=== PATIENT | female | born 1945 | race Caucasian/White ===

== ENCOUNTER 2017-01-30 00:19 | Emergency (ER) | payer OTHER, BC ==
[~2017-01-30] VITALS: Ht 154.9 cm; Wt 82.3 kg
[~2017-01-30 00:19] MED LIST: METF500T5 PO; PRVC/20 PO; VST10 PO
[2017-01-30 00:21] VITALS: TEMP 37; Ht 154.9 cm; Wt 82.3 kg
[2017-01-30] MEDS ORDERED: PRVC/40 PO (01:04)
[2017-01-30] MEDS ORDERED: HYDR25TA4 PO (01:05)
--- NOTE | 2017-01-30 01:05 | EMERGENCY ROOM VISIT NOTE ---
History Report prepared by Samiraibmarlon: Jackson Schmitt Under the Supervision of: Dr. Duy Go D.O. First contact with patient: 00:36 Chief Complaint: GI ASSESSMENT Stated Complaint: BURNING PAIN IN COLON AREA Nursing Triage Summary: Patient ambulatory to triage, states "I have a really bad burning in my gut area, especially in my right side. I had the same pain last week after taking metamucil. The burning lasted for three days. I took metamucil again tonight and got the same burning pain." Patient denies nausea, vomiting. Patient reports having her gallbladder removed about 8 years ago; tubal ligation. History of Present Illness The patient is a 71 year old female who presents to the Emergency Room with complaints of constant right-sided abdominal pain all day. The patient had similar pain last week, which resolved and returned today. The pain is worse when she takes a deep breath. The pain is currently rated 6/10 in severity and is described as a burning sensation internally. She has been eating okay and her bowel movements have been normal. She denies fevers or urinary symptoms. She is s/p cholecystectomy and tubal ligation. She still has an appendix. The patient denies history of colon cancer. Source of History: patient Onset: all day Position: abdomen (right) Symptom Intensity: 6/10 Quality: burning Timing: constant Modifying Factors (Worsening): breathing Associated Symptoms: No fevers, No urinary symptoms Review of Systems See HPI for pertinent positives and negatives. A total of ten systems were reviewed and were otherwise negative. Past Medical & Surgical Medical Problems: (1) HTN (hypertension) Family History No pertinent family history Social History Smoking Status: Never Smoker Marital Status: Housing Status: lives with family Current/Historical Medications Scheduled Enalapril Maleate (Enalapril Maleate), 10 MG PO DAILY Gemfibrozil (Lopid), 600 MG PO BID Hydrochlorothiazide (Hctz), 25 MG PO DAILY Levothyroxine Sodium (Levothyroxine Sodium), 50 MCG PO DAILY Metformin Hcl Er (Glucophage Er), 500 MG PO DAILY Pravastatin Sod (Pravastatin Sodium), 40 MG PO DAILY Allergies Coded Allergies: No Known Allergies (Unverified , 01/30/17) Physical Exam Vital Signs Date Time Temp Pulse Resp B/P Pulse Ox O2 Delivery O2 Flow Rate FiO2 01/30/17 02:50 63 01/30/17 01:54 62 20 156/59 95 Room Air 01/30/17 00:21 37.0 75 18 182/91 95 Room Air Physical Exam GENERAL: Awake, alert, well-appearing, in no distress HENT: Normocephalic, atraumatic. Oropharynx unremarkable. EYES: Normal conjunctiva. Sclera non-icteric. NECK: Supple. No nuchal rigidity. FROM. No JVD. RESPIRATORY: Clear to auscultation. CARDIAC: Regular rate, normal rhythm. Extremities warm and well perfused. Pulses equal. ABDOMEN: Soft, non-distended. Mild tenderness right flank. No rebound or guarding. No masses. RECTAL: Deferred. MUSCULOSKELETAL: Chest examination reveals no tenderness. The back is symmetrical on inspection without obvious abnormality. No joint edema. LOWER EXTREMITIES: Calves are equal size bilaterally and non-tender. No edema. No discoloration. NEURO: Normal sensorium. No sensory or motor deficits noted. SKIN: No rash or jaundice noted. Medical Decision & Procedures ER Provider Diagnostic Interpretation: CT results as stated below per my review and radiologist interpretation CT ABDOMEN & PELVIS: Cholecystectomy clips. No pancreatis or pyelonephritis. No hydronephrosis. Indeterminate subcentimeter hypodense lesion int he right liver lobe on image 35 series 2. Normal caliber abdominal aorta with atherosclerotic disease. Diverticulosis without evidence of diverticulitis. Normal appendix. No free air or free fluid or fluid collection. No bowel obstruction. Small hiatal hernia. Radiologist: Wilbur Cr MD. Laboratory Results 01/30/17 01:25 Red Blood Count 3.94, Mean Corpuscular Volume 92.4, Mean Corpuscular Hemoglobin 30.7, Mean Corpuscular Hemoglobin Concent 33.2, Mean Platelet Volume 8.8, Neutrophils (%) (Auto) 56.7, Lymphocytes (%) (Auto) 27.0, Monocytes (%) (Auto) 10.4, Eosinophils (%) (Auto) 5.1, Basophils (%) (Auto) 0.5, Neutrophils # (Auto ) 6.19, Lymphocytes # (Auto) 2.94, Monocytes # (Auto) 1.13, Eosinophils # (Auto ) 0.55, Basophils # (Auto) 0.05 01/30/17 01:25 Test 4/30/17 01:25 White Blood Count 10.89 K/uL (4.8-10.8) Red Blood Count 3.94 M/uL (4.2-5.4) Hemoglobin 12.1 g/dL (12.0-16.0) Hematocrit 36.4 % (37-47) Mean Corpuscular Volume 92.4 fL (80-100) Mean Corpuscular Hemoglobin 30.7 pg (25-34) Mean Corpuscular Hemoglobin Concent 33.2 g/dl (32-36) Platelet Count 354 K/uL (130-400) Mean Platelet Volume 8.8 fL (7.4-10.4) Neutrophils (%) (Auto) 56.7 % Lymphocytes (%) (Auto) 27.0 % Monocytes (%) (Auto) 10.4 % Eosinophils (%) (Auto) 5.1 % Basophils (%) (Auto) 0.5 % Neutrophils # (Auto) 6.19 K/uL (1.4-6.5) Lymphocytes # (Auto) 2.94 K/uL (1.2-3.4) Monocytes # (Auto) 1.13 K/uL (0.11-0.59) Eosinophils # (Auto) 0.55 K/uL (0-0.5) Basophils # (Auto) 0.05 K/uL (0-0.2) RDW Standard Deviation 45.2 fL (36.4-46.3) RDW Coefficient of Variation 13.3 % (11.5-14.5) Immature Granulocyte % (Auto) 0.3 % Immature Granulocyte # (Auto) 0.03 K/uL (0.00-0.02) Urine Color YELLOW Urine Appearance CLEAR (CLEAR) Urine pH 6.0 (4.5-7.5) Urine Specific [place] 1.015 (1.000-1.030) Urine Protein NEG (NEG) Urine Glucose (UA) NEG (NEG) Urine Ketones NEG (NEG) Urine Occult Blood NEG (NEG) Urine Nitrite NEG (NEG) Urine Bilirubin NEG (NEG) Urine Urobilinogen NEG (NEG) Urine Leukocyte Esterase LARGE (NEG) Urine WBC (Auto) >30 /hpf (0-5) Urine RBC (Auto) 0-4 /hpf (0-4) Urine Hyaline Casts (Auto) 0 /lpf (0-5) Urine Epithelial Cells (Auto) >30 /lpf (0-5) Urine Bacteria (Auto) NEG (NEG) Anion Gap 9.0 mmol/L (3-11) Est Creatinine Clear Calc Drug Dose 44.3 ml/min Estimated GFR () 57.7 Estimated GFR (Non- 49.8 BUN/Creatinine Ratio 26.4 (10-20) Calcium Level 9.5 mg/dl (8.5-10.1) Total Bilirubin 0.2 mg/dl (0.2-1) Direct Bilirubin < 0.1 mg/dl (0-0.2) Aspartate Amino Transf (AST/SGOT) 20 U/L (15-37) Alanine Aminotransferase (ALT/SGPT) 30 U/L (12-78) Alkaline Phosphatase 80 U/L (45-117) Total Protein 7.4 gm/dl (6.4-8.2) Albumin 3.8 gm/dl (3.4-5.0) Lipase 245 U/L (73-393) Laboratory results reviewed by me Medications Administered Medications (Trade) Dose Ordered Sig/[place] Route Start Time Stop Time Status Last Admin Dose Admin Morphine Sulfate (MoRPHine SULFATE INJ) 4 mg NOW STAT IV 01/30/17 01:06 01/30/17 01:07 DC 01/30/17 01:52 4 MG Ondansetron HCl 4 mg 4 mg NOW STAT IV 01/30/17 01:06 01/30/17 01:08 DC 01/30/17 01:52 4 MG Sodium Chloride (Nss 1000ml) 1,000 ml @ 999 mls/hr Q1H1M IV 01/30/17 01:30 03/01/17 01:29 01/30/17 01:51 999 MLS/HR ED Course 0057: The patient was evaluated in room B9. A complete history and physical exam was performed. 0106: Zofran 4 mg IV, Morphine Sulfate 4 mg IV. 0130: NSS 1000 ml @ 999 mls/hr. 0330: Septra Ds 800 / 160 mg PO. 0330: Reevaluated the patient. She is feeling much better. Discussed the treatment plan with her. She verbalized understanding. Medical Decision Differential diagnosis: Etiologies such as appendicitis, diverticulitis, PUD, biliary pathology, UTI, pancreatitis, obstruction, mesenteric ischemia, aortic pathology, infections, inflammatory bowel disease, renal colic, as well as others were entertained. Patient on reexamination resting in no distress I discussed the workup the patient patient's at bedside. Patient will be treated with antibiotics. Patient's CAT scan was appreciated. Impression Primary Impression: Abdominal pain Additional Impression: UTI (urinary tract infection) Scribe Attestation The scribe's documentation has been prepared under my direction and personally reviewed by me in its entirety. I confirm that the note above accurately reflects all work, treatment, procedures, and medical decision making performed by me. Departure Information Dispostion Home / Self-Care Prescriptions Sulfa/Trimethoprim (Bactrim Ds 800MG/160MG) Tab 1 TAB PO BID, #14 TAB Prov: Duy Go, DO 01/30/17 Referrals RV. Linton MD (PCP) Forms HOME CARE DOCUMENTATION FORM, IMPORTANT VISIT INFORMATION Patient Instructions Abdominal Pain, ED UTI Cystitis Female, My [facility] Health Problem Qualifiers Primary Impression: Abdominal pain Abdominal location: unspecified location Qualified Codes: R10.9 - Unspecified abdominal pain
[2017-01-30] MEDS ORDERED: MoRPHine SULFATE 4 MG/ML 1 ML CARP\\VIAL IV STA (01:06)
[2017-01-30] MEDS ORDERED: ONDANSETRON INJ 2 MG/ML 2 ML VIAL IV STA (01:06)
[2017-01-30] MEDS ORDERED: LEVO50TA6 PO (01:07)
[2017-01-30] MEDS ORDERED: GEMF600T3 PO (01:08)
[2017-01-30] MEDS ORDERED: OPTIRAY 320 IV PRN (01:15)
[2017-01-30] MEDS ORDERED: SODIUM CHLORIDE 0.9% 1000ML 1,000 ML IV SCH (01:30)
[2017-01-30 01:41] LABS: BASO % 0.5 %; BASO ABS # 0.05 K/uL (0-0.2); COMPLETE YES; EOS % 5.1 %; HEMATOCRIT 36.4 % (37-47); IG% 0.3 %; LYMPH ABS # 2.94 K/uL (1.2-3.4); MEAN CELL VOLUME 92.4 fL (80-100); MEAN CORPUSCULAR HEMOGLOBIN 30.7 pg (25-34); MEAN CORPUSCULAR HGB CONC 33.2 g/dl (32-36); MEAN PLATELET VOLUME 8.8 fL (7.4-10.4); MONO % 10.4 %; NEUT % 56.7 %; PLATELET COUNT 354 K/uL (130-400); RED BLOOD COUNT 3.94 M/uL (4.2-5.4); WHITE BLOOD COUNT 10.89 K/uL (4.8-10.8)
[2017-01-30 01:43] LABS: MANUAL MICROSCOPIC REQUIRED? NO; REVIEW REQ? NO; URINE APPEARANCE CLEAR (CLEAR); URINE BILIRUBIN NEG (NEG); URINE COLOR YELLOW; URINE EPITHELIAL CELL AUTO >30 /lpf (0-5); URINE NITRITE NEG (NEG); URINE SPECIFIC GRAVITY 1.015 (1.000-1.030); UROBILINOGEN NEG (NEG); ZZUR CULT IF INDIC CLEAN CATCH YES
[2017-01-30 02:02] LABS: ALT/SGPT 30 U/L (12-78); AST/SGOT 20 U/L (15-37); BLOOD UREA NITROGEN 29 mg/dl (7-18); BUN/CREATININE RATIO 26.4 (10-20); CALCIUM 9.5 mg/dl (8.5-10.1); CARBON DIOXIDE 28 mmol/L (21-32); CHLORIDE 105 mmol/L (98-107); GLUCOSE 130 mg/dl (70-99); POTASSIUM 3.6 mmol/L (3.5-5.1); SODIUM 142 mmol/L (136-145)
[2017-01-30 02:04] LABS: ALKALINE PHOSPHATASE 80 U/L (45-117)
[2017-01-30] MEDS ORDERED: SULFAMETHOXAZOLE/TRIMETHOPRIM DS 800/160MG TAB PO ONE (03:30)
[2017-01-30] MEDS ORDERED: SULF800T23 PO (03:35)
[2017-01-30 03:37] VITALS: BP 155/65; PULSE 63; O2SAT 94
--- NOTE | 2017-01-30 08:19 | DIAGNOSTIC IMAGING REPORT ---
CT OF THE ABDOMEN AND PELVIS WITH CONTRAST CLINICAL HISTORY: Right lower quadrant abdominal pain. COMPARISON STUDY: Right upper quadrant ultrasound November 04, 2012. TECHNIQUE: Following IV administration of 94 mL of Optiray-320, axial images of the abdomen and pelvis were obtained from the lung bases to the proximal femurs. Images were reviewed in the axial, sagittal, and coronal planes. IV contrast was administered without complication. CT DOSE: 506.18 mGy.cm FINDINGS: There is no free air, pneumatosis or portal venous gas. A 9 mm hypodense right hepatic lobe lesion likely corresponds to the cyst shown on ultrasound of November 04, 2012. The spleen, adrenal glands, right kidney and pancreas are normal. An 8 mm hypodense lesion within the lower pole of the left kidney is too small to characterize but favors a cyst. There is no biliary ductal dilatation status post cholecystectomy. There is no peripancreatic infiltration. There is no evidence for a bowel obstruction. The appendix is normal. There is no free fluid. No lymphadenopathy is present. Skeletal structures are unremarkable. There is moderate plaque of the abdominal aorta. There is a small fat-containing umbilical hernia. IMPRESSION: 1. No acute process within the abdomen or pelvis. 2. Normal appendix. 3. No biliary ductal dilatation status post cholecystectomy. Electronically signed by: Scott Albert M.D. 01/30/2017 8:17 AM Dictated Date/Time: 01/30/2017 8:14 AM
== END 2017-01-30 03:50 | disposition home or self-care (01) ==
LOC: C.EDB 00:20
DX: R10.9 Unspecified abdominal pain (principal); N39.0 Urinary tract infection, site not specified; I10 Essential (primary) hypertension; Z90.49 Acquired absence of other specified parts of digestive tract; Z98.51 Tubal ligation status; Z79.899 Other long term (current) drug therapy

== ENCOUNTER → 2017-02-10 | Outpatient (CLI) | payer OTHER, BC ==
[~2017-02-10] MED LIST changes: +GEMF600T3 PO; +HYDR25TA4 PO; +LEVO50TA6 PO; -PRVC/20 PO; +PRVC/40 PO; +SULF800T23 PO
[2017-02-10 09:29] LABS: BASO % 0.5 %; BASO ABS # 0.04 K/uL (0-0.2); COMPLETE YES; EOS % 2.1 %; HEMATOCRIT 39.5 % (37-47); IG% 0.1 %; LYMPH ABS # 2.78 K/uL (1.2-3.4); MEAN CELL VOLUME 93.2 fL (80-100); MEAN CORPUSCULAR HEMOGLOBIN 30.7 pg (25-34); MEAN CORPUSCULAR HGB CONC 32.9 g/dl (32-36); MEAN PLATELET VOLUME 9.1 fL (7.4-10.4); MONO % 8.7 %; NEUT % 55.6 %; PLATELET COUNT 398 K/uL (130-400); RED BLOOD COUNT 4.24 M/uL (4.2-5.4); WHITE BLOOD COUNT 8.42 K/uL (4.8-10.8)
[2017-02-10 09:45] LABS: ALT/SGPT 45 U/L (12-78); AST/SGOT 21 U/L (15-37); BLOOD UREA NITROGEN 27 mg/dl (7-18); CARBON DIOXIDE 31 mmol/L (21-32); CHLORIDE 107 mmol/L (98-107); GLUCOSE 113 mg/dl (70-99); POTASSIUM 4.8 mmol/L (3.5-5.1); SODIUM 141 mmol/L (136-145)
[2017-02-10 09:53] LABS: ESTIMATED AVERAGE GLUCOSE 148 mg/dl; HA1C FLAG Normal (Normal)
[2017-02-10 09:56] LABS: ALB/GLOB RATIO 1.1 (0.9-2); ALKALINE PHOSPHATASE 81 U/L (45-117); CHOLESTEROL 219 mg/dl (0-200); CHOLESTEROL/HDL RATIO 6.1; HDL CHOLESTEROL 36 mg/dl; LDL CHOLESTEROL CALCULATED 139 mg/dl; TRIGLYCERIDES 220 mg/dl (0-150); VERY LOW DENSITY LIPOPROT CALC 44 mg/dl
[2017-02-10 10:36] LABS: RATIO 5.3 mcg/mg (0-30.0)
--- NOTE | 2017-02-15 13:57 | CODING QUERY MEDICAL NECESSITY ---
CQSUPPORTING DIAGNOSIS NEEDED A supporting diagnosis is required for the test/procedure performed on this patient in order for us to be reimbursed by the patient's insurance. Please provide a supporting diagnosis for the following test/procedure listed below next to the test name along with your signature. *If there is no additional diagnosis for this patient that would support the following test/procedure please document that below next to the test/procedure. Test(s)/Procedure(s) that require a supporting diagnosis: DOS 02/10/17 VITAMIN B12 Provider Signature: Date: Thank you [employer] Once completed, please kindly fax back to [phone] For questions please call [phone]
== END | disposition home or self-care (01) ==
LOC: C.LAB1850 07:17
PROVIDERS: ATTEND Internal Medicine
DX: E11.9 Type 2 diabetes mellitus without complications (principal); E78.1 Pure hyperglyceridemia; I10 Essential (primary) hypertension; E55.9 Vitamin D deficiency, unspecified; E03.9 Hypothyroidism, unspecified; R74.8 Abnormal levels of other serum enzymes

== ENCOUNTER → 2017-03-14 | Outpatient (CLI) | payer OTHER, BC | END | disposition home or self-care (01) | LOC: C.MAMM 08:46 | PROVIDERS: ATTEND Internal Medicine | DX: M85.88 Other specified disorders of bone density and structure, other site (principal) ==

== ENCOUNTER → 2017-06-28 | Outpatient (CLI) | payer OTHER, BC ==
[2017-06-28 09:48] LABS: ESTIMATED AVERAGE GLUCOSE 151 mg/dl; HA1C FLAG Normal (Normal)
[2017-06-28 09:50] LABS: ALT/SGPT 25 U/L (12-78); BLOOD UREA NITROGEN 23 mg/dl (7-18); BUN/CREATININE RATIO 18.8 (10-20); CALCIUM 9.6 mg/dl (8.5-10.1); CARBON DIOXIDE 26 mmol/L (21-32); CHLORIDE 105 mmol/L (98-107); CHOLESTEROL 275 mg/dl (0-200); GLUCOSE 118 mg/dl (70-99); POTASSIUM 4.4 mmol/L (3.5-5.1); SODIUM 140 mmol/L (136-145); TRIGLYCERIDES 501 mg/dl (0-150)
[2017-06-28 09:53] LABS: ALKALINE PHOSPHATASE 84 U/L (45-117); AST/SGOT 21 U/L (15-37); CHOLESTEROL/HDL RATIO 7.6; HDL CHOLESTEROL 36 mg/dl
== END | disposition home or self-care (01) ==
LOC: C.LAB1850 07:50
PROVIDERS: ATTEND Internal Medicine
DX: E11.9 Type 2 diabetes mellitus without complications (principal); E78.00 Pure hypercholesterolemia, unspecified

== ENCOUNTER → 2018-02-09 | Outpatient (CLI) | payer OTHER, BC ==
[~2018-02-09] MED LIST changes: -SULF800T23 PO
[2018-02-09 09:45] LABS: ALBUMIN 3.7 gm/dl (3.4-5.0); ALT/SGPT 21 U/L (12-78); AST/SGOT 17 U/L (15-37); BLOOD UREA NITROGEN 25 mg/dl (7-18); CARBON DIOXIDE 30 mmol/L (21-32); CREATININE 1.36 mg/dl (0.60-1.20); GLUCOSE 120 mg/dl (70-99); SODIUM 140 mmol/L (136-145)
[2018-02-09 09:56] LABS: ALKALINE PHOSPHATASE 98 U/L (45-117); CHOLESTEROL 275 mg/dl (0-200); HEMOGLOBIN A1C 6.9 % (4.5-5.6); LDL CHOLESTEROL CALCULATED 182 mg/dl; TOTAL PROTEIN 7.9 gm/dl (6.4-8.2)
== END | disposition home or self-care (01) ==
LOC: C.LAB1850 07:34
PROVIDERS: ATTEND Internal Medicine
DX: E11.9 Type 2 diabetes mellitus without complications (principal); E03.9 Hypothyroidism, unspecified